=== PATIENT | female | born 1995 | race Caucasian/White ===

== ENCOUNTER 2019-06-29 19:38 | Emergency (ER) | payer OTHER ==
[~2019-06-29] VITALS: Ht 160 cm; Wt 77.1 kg
[2019-06-29 20:02] LABS: URINE BLOOD 3+ (Negative); URINE CLARITY SL CLOUDY; URINE COLOR YELLOW; URINE GLUCOSE-RANDOM* NEGATIVE (Negative); URINE KETONES TRACE (Negative); URINE NITRITE-REFLEX NEGATIVE (Negative); URINE PROTEIN (DIPSTICK) 2+ (Negative); URINE SPECIFIC GRAVITY 1.025 (1.005-1.035); URINE UROBILINOGEN 0.2 E.U./dl (0.2-1.0)
[2019-06-29 20:07] LABS: ICTOTEST (BILI CONFIRMATORY) Negative (Negative); URINE BILIRUBIN NEGATIVE (Negative); URINE LEUKOCYTES-REFLEX 1+ (Negative)
[2019-06-29 20:17] LABS: CASTS None Seen /LPF (None Seen); CRYSTALS None Seen /LPF (None Seen); SQUAMOUS 4-10 Moderate /LPF (0-3); URINE RBC >20 Many /HPF (0-2)
[2019-06-29 20:18] LABS: URINE WBC-REFLEX 0-5 Rare /HPF (0-5)
[2019-06-29 20:53] LABS: ABSOLUTE NEUTROPHILS 9.4 thou/uL (1.4-8.2); BASOPHILS 0.2 % (0.0-2.0); EOSINOPHILS 1.2 % (0.0-3.0); HEMATOCRIT 38.1 % (37.0-47.0); LYMPHOCYTES 15.6 % (24.0-44.0); MCH 30.1 pg (26.0-34.0); MCV 88.6 fL (80.0-100.0); PLATELET COUNT 222 thou/uL (150-400); RDW 12.8 % (10.5-14.5); WBC 12.6 thou/uL (4.0-11.0)
[2019-06-29 21:02] LABS: CALCIUM 9.3 mg/dL (8.5-10.1); CREATININE 0.7 mg/dL (0.6-1.0); POTASSIUM 3.8 mmol/L (3.5-5.1)
[2019-06-29] MEDS ORDERED: DOXYCYCLINE 10100 MG PO (21:11)
[2019-06-29] MEDS ORDERED: TESSALON PERLE100 MG PO (21:11)
[2019-06-29] MEDS ORDERED: NORFLEX100 MG PO (21:11)
[2019-06-29 21:48] VITALS: BP 128/62
== END 2019-06-29 21:50 | disposition home or self-care (01) ==
LOC: ER 19:38
PROVIDERS: Physician Assistant
DX: M54.12 Radiculopathy, cervical region (principal); J18.9 Pneumonia, unspecified organism; M79.18 Myalgia, other site; F17.210 Nicotine dependence, cigarettes, uncomplicated